=== PATIENT | male | born 1995 | race Caucasian/White ===

== ENCOUNTER 2024-05-01 03:39 | Emergency (ER) | payer OTHER ==
[~2024-05-01] VITALS: Ht 177.8 cm; Wt 77.1 kg
[2024-05-01] MEDS ORDERED: KETOROLAC TROMETHAMINE 15 MG/ML VIAL ONE (04:28)
[2024-05-01] MEDS ORDERED: oxyCODONE/APAP (5/325 MG) 1 UDTAB TABLET ONE (04:28)
[2024-05-01] MEDS: KETOROLAC TROMETHAMINE 15 MG/ML VIAL IM ONE (04:30)
[2024-05-01] MEDS: oxyCODONE/APAP (5/325 MG) 1 UDTAB TABLET PO ONE (04:30)
[2024-05-01] MEDS ORDERED: OXYC-128 PO (04:31)
[2024-05-01] MEDS ORDERED: KETO10TA2 PO (04:31)
[2024-05-01] MEDS ORDERED: CYCL10TA9 PO (04:31)
[2024-05-01] MEDS ORDERED: ACET-2030 PO (04:31)
[2024-05-01 04:49] VITALS: BP 115/65; TEMP 98; O2SAT 99
== END 2024-05-01 04:50 | disposition home or self-care (01) ==
LOC: ER 03:43
DX: G89.29 Other chronic pain (principal); M54.42 Lumbago with sciatica, left side; M54.41 Lumbago with sciatica, right side; Z60.2 Problems related to living alone
CPT/HCPCS: 99283; 96372; J1885